=== PATIENT | female | born 1985 | race African-American/Black ===

== ENCOUNTER 2016-10-10 23:48 | Emergency (ER) | payer OTHER ==
[~2016-10-10 23:48] MED LIST: ALBUTEROL17 GM INH; AMOXICILLIN PO; IBUPROFEN IN40 MG/ML PO
== END 2016-10-10 23:50 | disposition left against medical advice (07) ==
LOC: CED 23:48
DX: Z53.21 Procedure and treatment not carried out due to patient leaving prior to being seen by health care provider (principal)